=== PATIENT | male | born 1955 | race Caucasian/White ===

== ENCOUNTER → 2017-08-22 | Outpatient (CLI) | payer BC ==
[2014-10-08 11:25] VITALS: BP 122/77
--- NOTE | 2017-08-22 15:51 | RAD ---
HISTORY: Shortness of breath Study: PA and lateral Comparison: 03/15/2016 Findings: The heart is normal. The pulmonary vessels are normal. The lungs are mildly hyperinflated. No consoli dation or effusion is seen. The bones are intact. IMPRESSION: Stable chronic lung changes with no acute abnormality seen. Reported By:
== END ==
LOC: RAD 15:22
PROVIDERS: ATTEND Nurse Practitioner Family
DX: R06.02 Shortness of breath (principal)
CPT/HCPCS: 71020